=== PATIENT | female | born 1985 | race Caucasian/White ===

== ENCOUNTER 2017-05-01 17:43 | Emergency (ER) | payer MEDICAID ==
[~2017-05-01] VITALS: Ht 157.5 cm; Wt 60.0 kg
[2017-05-01] MEDS ORDERED: CEFTRIAXONE 1,000 MG ONE (18:30)
[2017-05-01] MEDS ORDERED: OXYcodone/APAP 10/325MG TABLET PO ONE (18:30)
[2017-05-01] MEDS ORDERED: OXYcodone/APAP 10/325MG TABLET ONE (18:30)
[2017-05-01] MEDS ORDERED: CEFTRIAXONE 1,000 MG IM ONE (18:30)
[2017-05-01 18:56] VITALS: BP 118/82
== END 2017-05-01 19:43 | disposition home or self-care (01) ==
LOC: ED 19:37
DX: N10 Acute pyelonephritis (principal)
CPT/HCPCS: 76770; 81001; 87077; 87086; 87186; 96372; 99285; J0696

== ENCOUNTER 2018-04-02 20:10 | Emergency (ER) | payer MEDICAID ==
[~2018-04-02] VITALS: Ht 157.5 cm; Wt 60.7 kg
[2018-04-02 20:13] VITALS: BP 141/71
[2018-04-02] MEDS ORDERED: AZITHROMYCIN 500 MG TABLET ONE (20:46)
[2018-04-02] MEDS ORDERED: CEFTRIAXONE 250 MG ONE (20:46)
[2018-04-02] MEDS ORDERED: AZITHROMYCIN 500 MG TABLET PO ONE (21:00)
[2018-04-02] MEDS ORDERED: CEFTRIAXONE 250 MG IM ONE (21:00)
== END 2018-04-02 21:05 | disposition home or self-care (01) ==
LOC: ED 20:45
DX: A74.9 Chlamydial infection, unspecified (principal)
CPT/HCPCS: 96372; 99283; J0696

== ENCOUNTER 2018-08-18 14:25 | Emergency (ER) | payer MEDICAID ==
[~2018-08-18] VITALS: Ht 157.5 cm; Wt 60.0 kg
[2018-08-18 15:16] LABS: BASOPHILS # (AUTO) 0.04 x10^3/uL (0-0.1); BASOPHILS % (AUTO) 1 % (0-1); EOSINOPHILS # (AUTO) 0.11 x10^3/uL (0-0.4); EOSINOPHILS % (AUTO) 1 % (1-7); LYMPHOCYTES # (AUTO) 2.72 x10^3/uL (1-3.4); LYMPHOCYTES % (AUTO) 31 % (22-44); MD NO; MEAN CORPUSCULAR VOLUME 94.2 fL (80-100); MEAN PLATELET VOLUME 9.3 fL (7.4-10.4); MONOCYTES % (AUTO) 8 % (2-9); NEUTROPHILS # (AUTO) 5.18 x10^3/uL (1.8-6.8); NEUTROPHILS % (AUTO) 59 % (42-75); PLATELET COUNT 303 x10^3/uL (130-400); RED BLOOD COUNT 4.35 x10^6/uL (3.82-5.3); RED CELL DISTRIBUTION WIDTH 13.1 % (9.6-15.2)
[2018-08-18 15:25] LABS: ALBUMIN 3.5 g/dL (3.4-5.0); ANION GAP 8 mmol/L (5-15); CALCIUM 8.6 mg/dL (8.5-10.1); CHLORIDE 109 mmol/L (98-107); CREATININE 0.97 mg/dL (0.55-1.02)
[2018-08-18] MEDS ORDERED: HYDROcodone/APAP 5/325 TABLET PO ONE (16:30)
[2018-08-18] MEDS ORDERED: HYDROcodone/APAP 5/325 TABLET ONE (16:32)
[2018-08-18 16:35] LABS: CULTURE INDICATED? NO; MICROSCOPIC INDICATED
[2018-08-18 18:44] VITALS: BP 131/87
== END 2018-08-18 18:46 | disposition home or self-care (01) ==
LOC: ED 14:52
DX: N93.8 Other specified abnormal uterine and vaginal bleeding (principal); F41.9 Anxiety disorder, unspecified; R10.2 Pelvic and perineal pain; Z90.49 Acquired absence of other specified parts of digestive tract; Z98.890 Other specified postprocedural states; Z86.19 Personal history of other infectious and parasitic diseases
CPT/HCPCS: 36415; 76830; 80048; 81001; 82040; 84703; 85025; 99285

== ENCOUNTER 2019-01-02 09:56 | Emergency (ER) | payer MEDICAID ==
[~2019-01-02] VITALS: Ht 157.5 cm; Wt 59.6 kg
[2019-01-02 10:06] VITALS: BP 140/103
[2019-01-02 11:12] LABS: RAPID INFLUENZA A Negative (Negative); RAPID INFLUENZA B Negative (Negative)
== END 2019-01-02 11:52 | disposition home or self-care (01) ==
LOC: ED 11:42
DX: J06.9 Acute upper respiratory infection, unspecified (principal); Z90.49 Acquired absence of other specified parts of digestive tract; F17.200 Nicotine dependence, unspecified, uncomplicated
CPT/HCPCS: 71046; 87400; 99284

== ENCOUNTER 2019-03-25 11:29 | Emergency (ER) | payer MEDICAID ==
[~2019-03-25] VITALS: Ht 157.5 cm; Wt 59.1 kg
[2019-03-25] MEDS ORDERED: GABA-827 PO (11:43)
[2019-03-25] MEDS ORDERED: LIDO700A42 EXT (11:44)
[2019-03-25] MEDS ORDERED: DEXAMETHASONE 4 MG TABLET ONE (11:46)
--- NOTE | 2019-03-25 11:55 | NUR ---
PATIENT PRESENTS TO ED TODAY FOR COUGH, SORE THROAT, AND SWOLLEN TONSILS X 1 WEEK, WORSE PAST FEW DAYS. LABS DRAWN, IV STARTED, AWAITING CT SCAN. NAD NOTED. CALL LIGHT WITHIN REACH.
[2019-03-25] MEDS ORDERED: SODIUM CHLORIDE FLUSH 10ML SYR IVF ONE (12:00)
[2019-03-25] MEDS ORDERED: DEXAMETHASONE 4 MG/ML, 1ML PO ONE (12:00)
[2019-03-25 12:11] LABS: BASOPHILS # (AUTO) 0.04 x10^3/uL (0-0.1); BASOPHILS % (AUTO) 0 % (0-1); EOSINOPHILS # (AUTO) 0.16 x10^3/uL (0-0.4); EOSINOPHILS % (AUTO) 2 % (1-7); LYMPHOCYTES # (AUTO) 2.38 x10^3/uL (1-3.4); LYMPHOCYTES % (AUTO) 22 % (22-44); MD NO; MEAN CORPUSCULAR HEMOGLOBIN 30.8 pg (27.0-34.8); MEAN CORPUSCULAR HGB CONC 32.3 g/dL (32.4-35.8); MEAN CORPUSCULAR VOLUME 95.3 fL (80-100); MEAN PLATELET VOLUME 9.2 fL (7.4-10.4); MONOCYTES # (AUTO) 0.64 x10^3/uL (0.2-0.8); MONOCYTES % (AUTO) 6 % (2-9); NEUTROPHILS # (AUTO) 7.59 x10^3/uL (1.8-6.8); NEUTROPHILS % (AUTO) 70 % (42-75); PLATELET COUNT 347 x10^3/uL (130-400); RED BLOOD COUNT 4.27 x10^6/uL (3.82-5.3); RED CELL DISTRIBUTION WIDTH 12.6 % (9.6-15.2)
[2019-03-25 12:21] LABS: ALBUMIN 3.5 g/dL (3.4-5.0); ANION GAP 7 mmol/L (5-15); CALCIUM 8.8 mg/dL (8.5-10.1); CHLORIDE 112 mmol/L (98-107); CREATININE 0.98 mg/dL (0.55-1.02)
--- NOTE | 2019-03-25 13:35 | NUR ---
CT PENDING. PATIENT SITTING IN [place], NAD NOTED. VS UPDATED IN CHART. NO ADDITIONAL NEEDS AT THIS TIME.
[2019-03-25] MEDS ORDERED: OMNIPAQUE 350 MG/ML, 100ML BOTTLE ONE (13:40)
[2019-03-25 13:56] VITALS: BP 114/81
--- NOTE | 2019-03-25 13:56 | NUR ---
Patient/Caregiver given discharge instructions and they have confirmed that they understand the instructions. Patient ambulatory with steady gait.
== END 2019-03-25 13:58 | disposition home or self-care (01) ==
LOC: ED 11:58
DX: J03.90 Acute tonsillitis, unspecified (principal); F17.200 Nicotine dependence, unspecified, uncomplicated
CPT/HCPCS: 36415; 70491; 80048; 82040; 85025; 99284; J1100; Q9967

== ENCOUNTER 2019-06-19 13:43 | Emergency (ER) | payer MEDICAID ==
[~2019-06-19] VITALS: Ht 157.5 cm; Wt 59.4 kg
[2019-06-19 16:08] VITALS: BP 137/91
== END 2019-06-19 16:58 | disposition home or self-care (01) ==
LOC: ED 16:19
DX: N30.00 Acute cystitis without hematuria (principal); R11.2 Nausea with vomiting, unspecified; R19.7 Diarrhea, unspecified; Z90.89 Acquired absence of other organs; F17.200 Nicotine dependence, unspecified, uncomplicated
CPT/HCPCS: 36415; 80053; 81001; 81025; 83690; 85025; 87077; 87086; 96365; 96375; 99283; J0696; J2405; J7030; 87186

== ENCOUNTER 2019-12-08 18:49 | Emergency (ER) | payer MEDICAID ==
[~2019-12-08] VITALS: Ht 154.9 cm; Wt 61.7 kg
[~2019-12-08 18:49] MED LIST: GABA-827 PO; LIDO700A42 EXT
[2019-12-08 18:54] VITALS: BP 143/97
[2019-12-08] MEDS ORDERED: CEPHALEXIN 500 MG CAPSULE PO ONE (20:00)
[2019-12-08] MEDS ORDERED: CEPHALEXIN 500 MG CAPSULE ONE (20:08)
== END 2019-12-08 20:17 | disposition home or self-care (01) ==
LOC: ED 20:09
DX: L03.317 Cellulitis of buttock (principal); L02.31 Cutaneous abscess of buttock; F17.200 Nicotine dependence, unspecified, uncomplicated
CPT/HCPCS: 99283; 99284

== ENCOUNTER 2019-12-13 23:15 | Emergency (ER) | payer MEDICAID ==
[~2019-12-13] VITALS: Ht 154.9 cm; Wt 62.3 kg
--- NOTE | 2019-12-13 23:31 | NUR ---
FITTING ROOM INSPECTOR: EKG DONE IN TRIAGE
--- NOTE | 2019-12-14 00:32 | NUR ---
PT TRIAGE RECHECK. PT SAYS PAIN IS NOW IN HER BACK INSTEAD OF HER CHEST. NEW VS TAKEN.
[2019-12-14] MEDS ORDERED: ASPIRIN 81 MG TABLET CHEW ONE (00:39)
[2019-12-14 00:51] LABS: MICROSCOPIC AUTO
[2019-12-14 00:53] LABS: CULTURE INDICATED? NO
[2019-12-14] MEDS ORDERED: ASPIRIN 81 MG TABLET CHEW PO ONE (01:00)
[2019-12-14 01:23] LABS: BASOPHILS # (AUTO) 0.05 x10^3/uL (0-0.1); BASOPHILS % (AUTO) 1 % (0-1); EOSINOPHILS # (AUTO) 0.15 x10^3/uL (0-0.4); EOSINOPHILS % (AUTO) 2 % (1-7); LYMPHOCYTES % (AUTO) 41 % (22-44); MD NO; MEAN CORPUSCULAR HEMOGLOBIN 31.4 pg (27.0-34.8); MEAN CORPUSCULAR HGB CONC 33.7 g/dL (32.4-35.8); MEAN CORPUSCULAR VOLUME 93.4 fL (80-100); MEAN PLATELET VOLUME 9.4 fL (7.4-10.4); MONOCYTES # (AUTO) 0.81 x10^3/uL (0.2-0.8); MONOCYTES % (AUTO) 8 % (2-9); NEUTROPHILS # (AUTO) 5.06 x10^3/uL (1.8-6.8); NEUTROPHILS % (AUTO) 49 % (42-75); PLATELET COUNT 312 x10^3/uL (130-400); RED BLOOD COUNT 4.34 x10^6/uL (3.82-5.3); RED CELL DISTRIBUTION WIDTH 12.3 % (9.6-15.2)
[2019-12-14 01:32] LABS: ALANINE AMINOTRANSFERASE 15 U/L (12-78); ALBUMIN 3.3 g/dL (3.4-5.0); ANION GAP 7 mmol/L (5-15); CALCIUM 8.7 mg/dL (8.5-10.1); CHLORIDE 110 mmol/L (98-107); CREATININE 0.82 mg/dL (0.55-1.02)
[2019-12-14 01:33] VITALS: BP 142/94
--- NOTE | 2019-12-14 01:35 | NUR ---
First contact w/ pt: Pt presents to ed c/o cp since last night. C/o mark w/ dizziness as well. Hx of migranes and "this feels like that." Mark feels like fullness and "i see white spots every once in awhile." States feeling better after aspirin admin. All monitoring applied. Vss. Call light within reach. All results back. Pt up for recheck. Awaiting md assessment.
[2019-12-14 01:37] LABS: ALKALINE PHOSPHATASE 57 U/L (45-117); BILIRUBIN,TOTAL 0.3 mg/dL (0.2-1.0); TOTAL PROTEIN 6.9 g/dL (6.4-8.2); TROPONIN I < 0.015 ng/mL (0.000-0.045)
== END 2019-12-14 02:28 | disposition home or self-care (01) ==
LOC: ED 12-14 01:46
DX: R10.13 Epigastric pain (principal); R42 Dizziness and giddiness; R07.89 Other chest pain; I10 Essential (primary) hypertension; M54.9 Dorsalgia, unspecified; F17.200 Nicotine dependence, unspecified, uncomplicated; Z90.89 Acquired absence of other organs
CPT/HCPCS: 36415; 71046; 76700; 80053; 81001; 83690; 84484; 84703; 85025; 93005; 99285

== ENCOUNTER 2020-06-28 14:22 | Emergency (ER) | payer MEDICAID ==
[~2020-06-28] VITALS: Ht 154.9 cm; Wt 59.9 kg
[2020-06-28 14:42] VITALS: BP 137/77
[2020-06-28 15:06] LABS: BASOPHILS # (AUTO) 0.04 x10^3/uL (0-0.1); BASOPHILS % (AUTO) 0 % (0-1); EOSINOPHILS # (AUTO) 0.09 x10^3/uL (0-0.4); EOSINOPHILS % (AUTO) 1 % (1-7); LYMPHOCYTES # (AUTO) 3.13 x10^3/uL (1-3.4); LYMPHOCYTES % (AUTO) 28 % (22-44); MD NO; MEAN CORPUSCULAR HEMOGLOBIN 31.9 pg (27.0-34.8); MEAN CORPUSCULAR HGB CONC 33.5 g/dL (32.4-35.8); MEAN CORPUSCULAR VOLUME 95.2 fL (80-100); MEAN PLATELET VOLUME 9.1 fL (7.4-10.4); MONOCYTES # (AUTO) 0.53 x10^3/uL (0.2-0.8); MONOCYTES % (AUTO) 5 % (2-9); NEUTROPHILS # (AUTO) 7.35 x10^3/uL (1.8-6.8); NEUTROPHILS % (AUTO) 66 % (42-75); PLATELET COUNT 327 x10^3/uL (130-400); RED BLOOD COUNT 4.26 x10^6/uL (3.82-5.3); RED CELL DISTRIBUTION WIDTH 12.8 % (9.6-15.2)
--- NOTE | 2020-06-28 15:38 | NUR ---
MATERIAL SPREADER: PT RETURN TO LOBBY FROM [facility]. URINE SPECIMAN COLLECTED AND WALKED TO LAB.
[2020-06-28 15:58] LABS: MICROSCOPIC AUTO
--- NOTE | 2020-06-28 16:14 | NUR ---
NIGHT SUPERVISOR: PT TO ROOM FROM [facility]
--- NOTE | 2020-06-28 16:27 | NUR ---
PATIENT HERE TODAY WITH CHIEF C/O VAGINAL BLEEDING. PATIENT STATES SHE WAS DIAGNOSED WITH CHLAMYDIA TUESDAY 06/26 AND STARTED TAKING MEDICATION FOR THIS. PER PATIENT THIS MORNING SHE STARTED HAVING VAGINAL BLEEDING WITH CLOTS. CALL LIGHT WITHIN REACH, NO APPARENT SIGNS OF DISTRESS.
--- NOTE | 2020-06-28 17:12 | NUR ---
PATIENT SITTING UP IN BED, DRESSED, DISCHARGE PAPERWORK PENDING.
--- NOTE | 2020-06-28 17:29 | NUR ---
Patient given discharge instructions and prescription and they have confirmed that they understand the instructions, no questions. All patient belongings gathered by patient. Patient ambulatory with steady gait to discharge desk.
== END 2020-06-28 17:30 | disposition home or self-care (01) ==
LOC: ED 17:20
DX: N30.00 Acute cystitis without hematuria (principal); N92.0 Excessive and frequent menstruation with regular cycle; I10 Essential (primary) hypertension; F17.200 Nicotine dependence, unspecified, uncomplicated; Z90.49 Acquired absence of other specified parts of digestive tract
CPT/HCPCS: 36415; 76830; 81001; 84703; 85025; 87086; 99284

== ENCOUNTER 2021-02-14 21:55 | Emergency (ER) | payer MEDICAID ==
[~2021-02-14] VITALS: Ht 154.9 cm; Wt 63.0 kg
[2021-02-14 21:58] VITALS: BP 167/106
--- NOTE | 2021-02-14 22:05 | NUR ---
PT AMBULATED TO ROOM. NO ACUTE DISTRESS. PA TO BEDSIDE TO EVAL PT.
[2021-02-14] MEDS ORDERED: CEFTRIAXONE 1,000 MG ONE (22:19)
[2021-02-14] MEDS ORDERED: DOXYCYCLINE 100MG TABLET ONE (22:19)
[2021-02-14] MEDS ORDERED: CEFTRIAXONE 1,000 MG IM ONE (22:30)
[2021-02-14] MEDS ORDERED: DOXYCYCLINE 100MG TABLET PO ONE (22:30)
[2021-02-14 23:18] LABS: HCG UR SG 1.006 (1.003-1.030)
== END 2021-02-14 23:05 | disposition home or self-care (01) ==
LOC: ED 22:30
DX: Z20.2 Contact with and (suspected) exposure to infections with a predominantly sexual mode of transmission (principal); F17.210 Nicotine dependence, cigarettes, uncomplicated; I10 Essential (primary) hypertension
CPT/HCPCS: 81025; 87491; 87591; 96372; 99283; 99406; J0696